=== PATIENT | female | born 1980 | race Caucasian/White ===

== ENCOUNTER → 2019-08-08 | Outpatient (CLI) | payer OTHER ==
[~2019-08-08] MED LIST: BENTYL20 MG PO; DIFLUCAN100 MG; MACROBID 100 M100 M1 PO; MULTI VITAMIN1 EACH; NORCO 5-325 TA1 EACH PO; ORTHO TRI-CYCL1 EACH; PERCOCET 5-3251 EACH PO; TRINATE TABLET1 TAB PO; ZOFRAN ODT4 MG PO
== END ==
LOC: CAT 13:31
DX: Z13.6 Encounter for screening for cardiovascular disorders (principal); E78.00 Pure hypercholesterolemia, unspecified; I25.10 Atherosclerotic heart disease of native coronary artery without angina pectoris